=== PATIENT | male | born 1945 | race Hispanic/Latino ===

== ENCOUNTER 2020-12-14 09:26 | Outpatient (CLI) | payer MEDICARE | END 2020-12-14 09:27 | disposition home or self-care (01) | LOC: BICRAD 09:26 | PROVIDERS: ATTEND Specialist | DX: M54.6 Pain in thoracic spine (principal); M47.814 Spondylosis without myelopathy or radiculopathy, thoracic region | CPT/HCPCS: 72072 ==

== ENCOUNTER 2023-07-11 13:22 | Outpatient (CLI) | payer OTHER | END 2023-07-11 13:23 | disposition home or self-care (01) | LOC: BICMRI 13:22 | PROVIDERS: ATTEND Specialist | DX: S22.000A Wedge compression fracture of unspecified thoracic vertebra, initial encounter for closed fracture (principal); S32.000A Wedge compression fracture of unspecified lumbar vertebra, initial encounter for closed fracture; M54.10 Radiculopathy, site unspecified; M51.36 Other intervertebral disc degeneration, lumbar region; M51.37 Other intervertebral disc degeneration, lumbosacral region; M48.04 Spinal stenosis, thoracic region | CPT/HCPCS: 72146; 72148 ==